=== PATIENT | male | born 1960 | race Caucasian/White ===

== ENCOUNTER → 2018-06-27 | Outpatient (CLI) | payer MEDICARE ==
[~2018-06-27] MED LIST: ALBU18HF INH; GEMF600T8; LISI-167 PO; lisinopril
[2018-06-27 10:35] LABS: BASOPHILS # (AUTO) 0.03 x10^3/uL (0-0.1); BASOPHILS % (AUTO) 1 % (0-1); EOSINOPHILS # (AUTO) 0.09 x10^3/uL (0-0.4); EOSINOPHILS % (AUTO) 2 % (1-7); LYMPHOCYTES # (AUTO) 1.52 x10^3/uL (1-3.4); LYMPHOCYTES % (AUTO) 32 % (22-44); MD NO; MEAN CORPUSCULAR HEMOGLOBIN 33.1 pg (27.5-34.5); MEAN CORPUSCULAR HGB CONC 34.3 g/dL (33.2-36.2); MEAN CORPUSCULAR VOLUME 96.5 fL (81-97); MEAN PLATELET VOLUME 8.4 fL (7.4-10.4); MONOCYTES # (AUTO) 0.33 x10^3/uL (0.2-0.8); MONOCYTES % (AUTO) 7 % (2-9); NEUTROPHILS # (AUTO) 2.84 x10^3/uL (1.8-6.8); NEUTROPHILS % (AUTO) 59 % (42-75); PLATELET COUNT 214 x10^3/uL (130-400); RED BLOOD COUNT 5.13 x10^6/uL (4.38-5.82); RED CELL DISTRIBUTION WIDTH 12.9 % (9.4-14.8)
[2018-06-27 10:37] LABS: MICROSCOPIC NOT IND
[2018-06-27 10:48] LABS: ALANINE AMINOTRANSFERASE 27 U/L (12-78); ALBUMIN 4.4 g/dL (3.4-5.0); ANION GAP 5 mmol/L (5-15); CALCIUM 9.7 mg/dL (8.5-10.1); CHLORIDE 106 mmol/L (98-107); CREATININE 0.88 mg/dL (0.7-1.3)
[2018-06-27 10:49] LABS: INTERNATIONAL NORMALIZED RATIO 1.02 (0.93-1.1); PROTHROMBIN TIME 10.8 Seconds (9.6-11.5)
[2018-06-27 10:50] LABS: ALKALINE PHOSPHATASE 77 U/L (45-117); TOTAL PROTEIN 8.1 g/dL (6.4-8.2)
== END | disposition home or self-care (01) ==
LOC: STAR 09:20
PROVIDERS: ATTEND Urology
DX: Z01.818 Encounter for other preprocedural examination (principal); C61 Malignant neoplasm of prostate
CPT/HCPCS: 36415; 80053; 81003; 85025; 85610; 85730; 87086; 93005

== ENCOUNTER 2018-07-05 09:40 | Inpatient (IN) | payer MEDICARE ==
[2018-06-27 09:58] VITALS: BP 157/93
[~2018-07-05] VITALS: Ht 190.5 cm; Wt 82.0 kg
[~2018-07-05 09:40] MED LIST changes: +FENTANYL PF 250 MCG/5ML ONE; +MIDAZOLAM 1 MG/ML, 2ML ONE
[2018-07-05] MEDS ORDERED: LACTATED RINGERS 1,000 ML IV SCH (10:08)
[2018-07-05] MEDS ORDERED: BUPIVACAINE/PF 0.25% ONE (11:29)
[2018-07-05] MEDS ORDERED: EPINEPHRINE 1 MG/ML, 1ML ONE (11:29)
[2018-07-05] MEDS ORDERED: INDIGO CARMINE 0.8%, 5ML ONE (11:29)
[2018-07-05] MEDS ORDERED: THROMBIN 5,000 UNIT VIAL TP ONE (11:29)
[2018-07-05] MEDS ORDERED: LIDOCAINE-MPF 2% ,5ML ONE (12:12)
[2018-07-05] MEDS ORDERED: PROPOFOL 10 MG/ML, 50ML ONE (12:12)
[2018-07-05] MEDS ORDERED: hydrALAzine 20 MG/ML, 1ML ONE (12:12)
[2018-07-05] MEDS ORDERED: FENTANYL PF 250 MCG/5ML ONE (13:06)
[2018-07-05] MEDS ORDERED: hydrALAzine 20 MG/ML, 1ML IV PRN (13:30)
[2018-07-05] MEDS ORDERED: MIDAZOLAM 1 MG/ML, 2ML IV PRN (13:30)
[2018-07-05] MEDS ORDERED: SCOPOLAMINE PATCH, 1.5MG PATCH.TD72 TD PRN (13:30)
[2018-07-05] MEDS ORDERED: PROMETHAZINE 25 MG/ML, 1ML IV PRN (13:30)
[2018-07-05] MEDS ORDERED: OXYcodone 5 MG/5 ML ORAL.SOL UDC PO PRN (13:30)
[2018-07-05] MEDS ORDERED: ALBUTEROL/IPRATROPIUM 2.5MG/0.5MG, 3 ML NPPB PRN (13:30)
[2018-07-05] MEDS ORDERED: MEPERIDINE/PF 25MG/0.5ML IVPush PRN (13:30)
[2018-07-05] MEDS ORDERED: LABETALOL 5MG/ML, 20ML IV PRN (13:30)
[2018-07-05] MEDS ORDERED: ACETAMINOPHEN 325 MG TABLET PO PRN (13:30)
[2018-07-05] MEDS ORDERED: ONDANSETRON 2MG/ML, 2ML IV PRN ×2 (13:30→19:00)
[2018-07-05] MEDS ORDERED: GLYCOPYRROLATE 0.2MG/1ML, 5ML ONE (16:45)
[2018-07-05] MEDS ORDERED: NEOSTIGMINE 1 MG/ML, 10ML ONE (16:45)
[2018-07-05] MEDS ORDERED: ROCURONIUM 10MG/ML,5ML ONE (16:45)
[2018-07-05] MEDS ORDERED: PROPOFOL 10 MG/ML, 20ML ONE (16:45)
[2018-07-05] MEDS ORDERED: CEFAZOLIN 1,000 MG ONE (16:45)
[2018-07-05] MEDS ORDERED: DEXAMETHASONE 4 MG/ML, 1ML ONE (16:45)
[2018-07-05] MEDS ORDERED: ONDANSETRON 2MG/ML, 2ML ONE (16:45)
[2018-07-05] MEDS ORDERED: FENTANYL PF 100 MCG/2ML ONE ×2 (16:45→17:04)
[2018-07-05] MEDS ORDERED: OXYcodone 5 MG/5 ML ORAL.SOL UDC ONE (17:04)
[2018-07-05] MEDS: FENTANYL PF 100 MCG/2ML IV PRN ×2 (17:13→17:22)
[2018-07-05] MEDS ORDERED: HYDROmorphone 2 MG/ML, 1ML ONE (17:17)
[2018-07-05] MEDS: HYDROmorphone 2 MG/ML, 1ML IVPush PRN ×3 (17:24→17:47)
[2018-07-05] MEDS: ALBUTEROL SULFATE 2.5 MG/3 ML HHN SCH (19:00)
[2018-07-05] MEDS ORDERED: TEMAZEPAM 15 MG CAPSULE PO PRN (19:00)
[2018-07-05] MEDS ORDERED: morphine SULFATE 10 MG/ML, 1ML IV PRN (19:00)
[2018-07-05] MEDS: D5%-0.45NACL+KCL 20MEQ 1,000 ML IV SCH (19:53)
[2018-07-05] MEDS: CEFAZOLIN PMX 1GM/50ML 50 ML IVPB SCH (19:56)
[2018-07-06 00:05] VITALS: BP 140/85
[2018-07-06] MEDS: ALBUTEROL SULFATE 2.5 MG/3 ML HHN SCH ×4 (01:00→19:00)
[2018-07-06] MEDS: HYDROcodone/APAP 5/325 TABLET PO PRN ×5 (03:43→20:38)
[2018-07-06 04:12] VITALS: BP 143/86
[2018-07-06] MEDS: CEFAZOLIN PMX 1GM/50ML 50 ML IVPB SCH (04:20)
[2018-07-06] MEDS: D5%-0.45NACL+KCL 20MEQ 1,000 ML IV SCH ×3 (04:20→23:09)
[2018-07-06 06:21] LABS: ANION GAP 5 mmol/L (5-15); CALCIUM 7.8 mg/dL (8.5-10.1); CHLORIDE 109 mmol/L (98-107)
[2018-07-06 06:22] LABS: CREATININE 0.89 mg/dL (0.7-1.3)
[2018-07-06] MEDS ORDERED: ENOXAPARIN 40 MG/0.4 ML SQ SCH (08:00)
[2018-07-06 08:28] VITALS: BP 135/72
[2018-07-06] MEDS: LISINOPRIL 10 MG TABLET PO SCH (09:00)
[2018-07-06] MEDS ORDERED: OMNIPAQUE 350 MG/ML, 100ML BOTTLE ONE (13:27)
[2018-07-06 17:11] VITALS: BP 122/76
[2018-07-06 20:06] VITALS: BP 157/83
[2018-07-06 23:10] VITALS: BP 163/79
[2018-07-07] MEDS ORDERED: LISINOPRIL 10 MG TABLET PO ONE
[2018-07-07] MEDS: HYDROcodone/APAP 5/325 TABLET PO PRN ×4 (00:20→16:36)
[2018-07-07] MEDS ORDERED: ALBUTEROL SULFATE 2.5 MG/3 ML HHN PRN (01:30)
[2018-07-07 03:08] VITALS: BP 142/90
[2018-07-07 05:34] LABS: BASOPHILS # (AUTO) 0.02 x10^3/uL (0-0.1); BASOPHILS % (AUTO) 0 % (0-1); EOSINOPHILS # (AUTO) 0.04 x10^3/uL (0-0.4); EOSINOPHILS % (AUTO) 1 % (1-7); LYMPHOCYTES # (AUTO) 0.86 x10^3/uL (1-3.4); LYMPHOCYTES % (AUTO) 16 % (22-44); MD NO; MEAN CORPUSCULAR HEMOGLOBIN 33.2 pg (27.5-34.5); MEAN CORPUSCULAR HGB CONC 33.7 g/dL (33.2-36.2); MEAN CORPUSCULAR VOLUME 98.3 fL (81-97); MEAN PLATELET VOLUME 8.3 fL (7.4-10.4); MONOCYTES # (AUTO) 0.39 x10^3/uL (0.2-0.8); MONOCYTES % (AUTO) 8 % (2-9); NEUTROPHILS # (AUTO) 3.95 x10^3/uL (1.8-6.8); NEUTROPHILS % (AUTO) 75 % (42-75); PLATELET COUNT 151 x10^3/uL (130-400); RED BLOOD COUNT 3.28 x10^6/uL (4.38-5.82); RED CELL DISTRIBUTION WIDTH 13.1 % (9.4-14.8)
[2018-07-07 05:44] LABS: ANION GAP 4 mmol/L (5-15); CHLORIDE 110 mmol/L (98-107)
[2018-07-07 05:45] LABS: CREATININE 0.71 mg/dL (0.7-1.3)
[2018-07-07] MEDS: D5%-0.45NACL+KCL 20MEQ 1,000 ML IV SCH ×2 (07:33→15:30)
[2018-07-07 07:35] VITALS: BP 195/90
[2018-07-07] MEDS: LISINOPRIL 10 MG TABLET PO SCH (08:46)
[2018-07-07 09:33] VITALS: BP 145/90
[2018-07-07 14:00] VITALS: BP 119/82
[2018-07-07] MEDS ORDERED: HYDR-3307 PO (16:45)
[2018-07-07 17:00] VITALS: BP 135/90
== END 2018-07-07 17:15 | disposition home or self-care (01) | DRG 707 ==
LOC: OUT 09:40 → 4NOR 18:31 → OUT 18:41 → 4NOR 18:42 → DCLOUNGE 07-07 17:03
PROVIDERS: ADMIT Urology; ATTEND Urology
PROC: 0VT34ZZ Resection of Bilateral Seminal Vesicles, Percutaneous Endoscopic Approach (ICD-10-PCS; 2018-07-05)
PROC: 0VBQ4ZZ Excision of Bilateral Vas Deferens, Percutaneous Endoscopic Approach (ICD-10-PCS; 2018-07-05)
PROC: 8E0W4CZ Robotic Assisted Procedure of Trunk Region, Percutaneous Endoscopic Approach (ICD-10-PCS; 2018-07-05)
PROC: 3E0T3BZ Introduction of Anesthetic Agent into Peripheral Nerves and Plexi, Percutaneous Approach (ICD-10-PCS; 2018-07-05)
PROC: 03HY32Z Insertion of Monitoring Device into Upper Artery, Percutaneous Approach (ICD-10-PCS; 2018-07-05)
PROC: 0TB Urinary System, Excision (ICD-10-PCS; 2018-07-05)
PROC: 0VT04ZZ Resection of Prostate, Percutaneous Endoscopic Approach (ICD-10-PCS; principal; 2018-07-05 12:30)
DX: C61 Malignant neoplasm of prostate (principal); R71.0 Precipitous drop in hematocrit; I10 Essential (primary) hypertension; J44.9 Chronic obstructive pulmonary disease, unspecified; K21.9 Gastro-esophageal reflux disease without esophagitis; F17.210 Nicotine dependence, cigarettes, uncomplicated
CPT/HCPCS: 36415; 74177; 80048; 82570; 85014; 85018; 85025; 86850; 86900; 88309; C1729; G0378; J0171; J0690; J1100; J1170; J2250; J2405; J2704; J2710; J3010; J3490; Q9967; C1760; J0360; J3480; J7120

== ENCOUNTER 2018-07-12 12:09 | Outpatient (CLI) | payer MEDICARE ==
[~2018-07-12 12:09] MED LIST changes: -FENTANYL PF 250 MCG/5ML ONE; +HYDR-3307 PO; -MIDAZOLAM 1 MG/ML, 2ML ONE
== END 2018-07-12 23:59 | disposition home or self-care (01) ==
LOC: RAD 12:09
PROVIDERS: ATTEND Urology
DX: D49.59 Neoplasm of unspecified behavior of other genitourinary organ (principal); C61 Malignant neoplasm of prostate
CPT/HCPCS: 51600; 74430

== ENCOUNTER 2018-07-12 18:27 | Emergency (ER) | payer MEDICARE ==
[~2018-07-12] VITALS: Ht 190.5 cm; Wt 83.0 kg
--- NOTE | 2018-07-12 18:48 | NUR ---
C/O CONSTIPATION, LAST BM: YESTERDAY MORNING. LAST ORAL INTAKE: COFFEE THIS AM, WATER DURING THE DAY. HYDROCODONE - "WAS TAKING 2 EVERY 4 HOURS", RAN OUT THIS MORNING - LAST DOSE 0930 TODAY. DULCOLAX 2 TABS THIS AM. C/O PAIN TO LOWER ABD, RECTUM, "WHOLE GUT", "KIDNEYS". GAUZE DRESSING OVER DRAIN TUBE SITE (TUBE REMOVED YESTERDAY). [facility] CATH REMOVED TODAY AFTER CYSTOGRAM. TYLENOL 1000MG ABOUT 45 MINS PRIOR TO EMS ARRIVAL.
[2018-07-12] MEDS ORDERED: ONDANSETRON 2MG/ML, 2ML ONE (18:58)
[2018-07-12] MEDS ORDERED: HYDROmorphone 2 MG/ML, 1ML ONE (18:59)
[2018-07-12] MEDS ORDERED: ONDANSETRON 2MG/ML, 2ML IVPush ONE (19:00)
[2018-07-12] MEDS ORDERED: SODIUM CHLORIDE FLUSH 10ML SYR IVF ONE (19:00)
[2018-07-12 19:04] LABS: BASOPHILS # (AUTO) 0.03 x10^3/uL (0-0.1); BASOPHILS % (AUTO) 0 % (0-1); EOSINOPHILS # (AUTO) 0.06 x10^3/uL (0-0.4); EOSINOPHILS % (AUTO) 1 % (1-7); LYMPHOCYTES # (AUTO) 1.06 x10^3/uL (1-3.4); LYMPHOCYTES % (AUTO) 14 % (22-44); MD NO; MEAN CORPUSCULAR HEMOGLOBIN 33.7 pg (27.5-34.5); MEAN CORPUSCULAR HGB CONC 34.6 g/dL (33.2-36.2); MEAN CORPUSCULAR VOLUME 97.4 fL (81-97); MEAN PLATELET VOLUME 7.5 fL (7.4-10.4); MONOCYTES % (AUTO) 5 % (2-9); NEUTROPHILS # (AUTO) 6.26 x10^3/uL (1.8-6.8); NEUTROPHILS % (AUTO) 80 % (42-75); PLATELET COUNT 380 x10^3/uL (130-400); RED BLOOD COUNT 3.83 x10^6/uL (4.38-5.82); RED CELL DISTRIBUTION WIDTH 12.9 % (9.4-14.8)
[2018-07-12] MEDS: HYDROmorphone 2 MG/ML, 1ML IVPush PRN ×2 (19:05→20:44)
--- NOTE | 2018-07-12 19:10 | NUR ---
PT REPORT TO WALTER Priest RN. PT CARE TRANSFERRED.
[2018-07-12 19:11] LABS: ALANINE AMINOTRANSFERASE 28 U/L (12-78); ALBUMIN 3.6 g/dL (3.4-5.0); ANION GAP 8 mmol/L (5-15); CALCIUM 8.7 mg/dL (8.5-10.1); CHLORIDE 107 mmol/L (98-107); CREATININE 1.02 mg/dL (0.7-1.3)
[2018-07-12 19:13] LABS: ALKALINE PHOSPHATASE 69 U/L (45-117); BILIRUBIN,TOTAL 1.1 mg/dL (0.2-1.0); TOTAL PROTEIN 7.1 g/dL (6.4-8.2)
--- NOTE | 2018-07-12 19:48 | NUR ---
DR. MORRISSEY AWARE OF BP OF 87/60. LITER BOLUS STARTED.
[2018-07-12] MEDS ORDERED: SODIUM CHLORIDE 0.9% 1,000ML IVBOLUS ONE (20:00)
[2018-07-12] MEDS ORDERED: HYDROmorphone 1 MG/ML, 1ML ONE (20:40)
--- NOTE | 2018-07-12 20:40 | NUR ---
PT BACK FROM CT RESTLESS, AND C/O INCREASING PAIN. PT IS DIAPHORETIC WITH BP ELEVATED NOW. DR. MORRISSEY AWARE.
[2018-07-12] MEDS ORDERED: LORazepam 2 MG/ML, 1ML ONE (20:47)
[2018-07-12] MEDS ORDERED: LORazepam 2 MG/ML, 1ML IVPush ONE (21:00)
--- NOTE | 2018-07-12 21:02 | NUR ---
PT MEDICATED AFTER NOT BEING ABLE TO SIT STILL FOR CT SCAN DUE TO PAIN. NICOLE CALLED IN CT NOTIFYING HER THAT PT IS MORE RELAXED AFTER MEDS.
--- NOTE | 2018-07-12 21:19 | NUR ---
PT SLEEPING IN NAD. WAITNG ON CT AND UA SPECIMEN THAT PT IS AWARE OF NEEDING.
--- NOTE | 2018-07-12 21:48 | NUR ---
PT BACK FROM CT AND COMFORTABLE. PT STILL ATTEMPTING TO VOID. DR. MORRISSEY AWARE. VSS.
[2018-07-12 21:49] VITALS: BP 161/91
[2018-07-12] MEDS ORDERED: OMNIPAQUE 350 MG/ML, 100ML BOTTLE ONE (22:03)
--- NOTE | 2018-07-12 22:07 | NUR ---
REPORT TO SARAH WISE.
--- NOTE | 2018-07-12 22:34 | NUR ---
arora kit and urojet at bedside for MD. Anthony of urology.
[2018-07-12] MEDS ORDERED: MAGNESIUM CITRATE 300ML ORAL SOL ONE (22:45)
[2018-07-12] MEDS ORDERED: MAGNESIUM CITRATE 300ML ORAL SOL PO ONE (23:00)
--- NOTE | 2018-07-12 23:03 | NUR ---
DOES NOT MAURIZIO UA AT THIS TIME. PT GIVEN MAG CITRATE.
--- NOTE | 2018-07-12 23:04 | NUR ---
PT GIVEN H20 12OZ TO HELP FACILITATE BM.
--- NOTE | 2018-07-12 23:07 | NUR ---
Patient/Caregiver given discharge instructions and they have confirmed that they understand the instructions. Patient ambulatory with steady gait. PT GIVEN [facility] CARE EDUCATION FOR HOME. PT VERBALIZED UNDERSTANDING.
== END 2018-07-13 00:28 | disposition home or self-care (01) ==
LOC: ED 21:06
DX: K59.00 Constipation, unspecified (principal); I95.9 Hypotension, unspecified; I10 Essential (primary) hypertension
CPT/HCPCS: 36415; 74177; 80053; 83605; 83690; 85025; 96361; 96374; 96375; 96376; 99284; J1170; J2060; J2405; J7030; Q9967